=== PATIENT | male | born 1990 | race Two or more races ===

== ENCOUNTER 2018-10-16 06:35 | Emergency (ER) | payer OTHER | END 2018-10-16 08:44 | disposition home or self-care (01) | LOC: JER 06:35 ==

== ENCOUNTER 2018-11-01 09:38 | Day surgery (SDC) | payer OTHER ==
[2018-10-31 15:35] VITALS: BMI 28.5
--- NOTE | 2018-11-01 09:17 | OP ---
Operative Note - Note: Operative Date: 11/01/18 Pre-Operative Diagnosis: Right Achilles tear Operation: Right Achilles repair Post-Operative Diagnosis: Same as Pre-op Surgeon: Colin Beaver Supervisor Laundry: Randi Alamo Anesthesia: General Operative Report Dictated: Yes
[~2018-11-01 09:38] MED LIST: LACTATED RINGERS SOLUTION 1,000 ML IV SCH; ONDANSETRON 4 MG/2 ML VIAL IVPUSH PRN; oxyCODONE HCL 5 MG TABLET PO PRN
[2018-11-01] MEDS ORDERED: DEXAMETHASONE SOD PHOSPHATE/PF 10 MG/ML SDV ONE (10:17)
[2018-11-01] MEDS ORDERED: MIDAZOLAM HCL 2 MG/2 ML SINGLE DOSE VIAL ONE ×2 (10:17→10:49)
[2018-11-01] MEDS ORDERED: BUPIVACAINE HCL/PF 0.5% (5 MG/ML) 30 ML VIAL IJ ONE (10:17)
[2018-11-01] MEDS ORDERED: DEXMEDETOMIDINE HCL 200 MCG/2 ML IVPB ONE (10:37)
--- NOTE | 2018-11-01 14:33 | OP ---
DATE OF OPERATION: 11/01/2018 PREOPERATIVE DIAGNOSIS: Right Achilles tendon rupture. POSTOPERATIVE DIAGNOSIS: Right Achilles tendon rupture. PROCEDURE: Right Achilles tendon repair. SURGEON: Colin Beaver MD LABOR TRAINER: JENELLE Guerra, whose skillful assistance was necessary for the safe and timely performance of this procedure. Mrs. Alamo was able to provide limb positioning, traction, assist in suture passage as well as anchor insertion. ANESTHESIA: Spinal plus regional. POSTOPERATIVE CONDITION: Stable. COMPLICATIONS: None. IMPLANTS: Arthrex Swivel-Lock x2. INDICATIONS: This is a pleasant gentleman who suffered an injury to his Achilles. Treatment options including nonoperative care with functional rehabilitation versus operative repair. We discussed that operative repair typically results in earlier return to function and may offer some benefits as far as functional performance, although some newer studies are challenging this concept. We reviewed operative risks in detail, including bleeding, infection, neurovascular injury, need for further surgery, postoperative pain and stiffness, re-rupture or failure to heal. We discussed potential injury to the sural nerve. I reviewed the postoperative rehabilitation protocol and need for physical therapy. We reviewed use of perioperative antibiotic and DVT prophylaxis. I addressed all the patient's questions and concerns. He voiced understanding and elected to proceed. PROCEDURE: The patient was brought to the operating room, where spinal anesthesia was administered. Previously, he had been given a preoperative block in the holding area. The patient was then allowed to position himself comfortably in the prone position, careful to pad all the bony prominences. The right lower extremity was then prepped and draped in the usual sterile fashion. A preoperative dose of antibiotics was given and the usual timeout procedure was performed. Initially an incision was planned out over the palpated area of rupture of the Achilles tendon. This was carried down through skin to subcutaneous tissue. Blunt spreading was used to expose the paratenon. The paratenon was then split in line with its fibers. The identified Achilles was confirmed ruptured. The tendon end was debrided of any nonviable tissue. Utilizing deep suture, 2 whipstitch-pattern sutures were placed. The sutures were pulled on and we were able to obtain excellent purchase. Attention was then turned distally. Here, given the difficult nature of this injury, it was decided to perform a small incision over the superior border of the calcaneal tuberosity. This was carried down full-thickness to avoid injury to the skin. The distal end of the Achilles was identified and was quite short but still attached to the footprint. The rupture was identified to proceed at an oblique angle starting just proximal to the tuberosity and extending approximately 2 cm more proximally. The 2 drill holes for the suture anchors were now placed into the tuberosity. Both were tapped. The Banana Lasso was then used to pass the sutures through the distal aspect of the Achilles and out the more proximal wound. The previously-passed sutures were then passed, one per medial, one per lateral, using the Lasso. Both were loaded with anchors. The sutures were then tensioned and the anchors were inserted, bringing the Achilles into anatomic alignment. The wound was now irrigated. The paratenon was repaired using 3-0 Vicryl. The subcutaneous tissue was repaired using 2-0 and 3-0 Vicryl. The skin was closed using 3-0 nylon vertical mattress more inferiorly and running more superiorly. Sterile dressings were placed. The patient was transferred to recovery room after placement of a short leg cast in stable condition. Juan [id number]
[2018-11-01 16:21] VITALS: TEMP 97.9
[2018-11-01 19:24] VITALS: BP 110/79; PULSE 78
== END 2018-11-01 19:15 | disposition home or self-care (01) ==
LOC: FASU 09:38
PROVIDERS: ATTEND Orthopaedic Surgery Sports Medicine
PROC: 0LQN0ZZ Repair Right Lower Leg Tendon, Open Approach (ICD-10-PCS; principal; 2018-11-01 11:23)
DX: S86.011A Strain of right Achilles tendon, initial encounter (principal); X58.XXXA Exposure to other specified factors, initial encounter; Y93.9 Activity, unspecified; Y92.9 Unspecified place or not applicable
CPT/HCPCS: 36415; 84460; 86803; 87340; 87389; 94760